=== PATIENT | male | born 2000 | race Caucasian/White ===

== ENCOUNTER 2025-11-17 07:29 | Emergency (ER) | payer OTHER ==
[~2025-11-17] VITALS: Ht 160 cm; Wt 54.0 kg
--- NOTE | 2025-11-17 08:10 | Physician Documentation ---
History of Present Illness ~ General Chief Complaint: Rash Stated Complaint: STOMACH RASH Time Seen by MD: 08:09 Source: patient Mode of Arrival: POV History of Present Illness Initial Comments CC: Rash HPI: Patient is a 25-year-old male with current skin diagnosis of malassezia folliculitis (pityrosporum) presenting to the ED for evaluation of rash flare- up. The patient reports that the rash started from a fungal infection and that he has been following up with a sales analytics manager to manage his condition. He locates the rash to be on his bilateral lower extremities with spreading to his a buttocks. The rash has been increasingly itchy and painful. Patient was prescribed a topical cream for the itchiness, but he did not have any relief with use. Patient was also prescribed itraconazole 100 mg topical cream but was not able to pick it up due to insurance complications. The patient is requesting for a single dose here. He denies any chills or fevers. ROS: Constitutional: Negative for fever and chills. HENT: Negative for sore throat and rhinorrhea. Eyes: Negative for pain and redness. Respiratory: Negative for cough and SOB. Cardiovascular: Negative for chest pain and palpitations. Gastrointestinal: Negative for nausea and vomiting. . Genitourinary: Negative for dysuria and hematuria. Musculoskeletal: Negative for acute back pain and acute neck pain. Skin: Rash to lower extremities and buttocks Neurological: Negative for acute numbness or weakness. PMH: Cerebral palsy Medication Reconciliation Allergies: Coded Allergies: No Known Allergies (Unverified , 11/17/25) Scheduled Fluconazole (Diflucan), 1 TAB PO DAILY Hydroxyzine Hcl (Atarax), 1 TAB PO Q8H Past Medical History Other Past Medical History: Cerebral palsy Physical Exam Physical Exam Vital Signs: Temperature: 97.4, Source: Temporal, Heart Rate: 108, Respiratory Rate: 15, BP: 133/91, Pulse Oximetry: 96, Weight: 54.000 Physical Exam General: Awake. No distress. Verbal Head: No trauma Eyes: Nl lids Nl conjunctiva. No eye discharge ENT: Mucous membranes Nl. Lips Nl. No lesions Neck: Supple. No JVD. No visible mass Resp: Rate normal. No respiratory distress. No retractions. Normal air flow. No wheezes, rhonchi, or rales. Heart: Regular rhythm. No murmur. No rub Abdomen: Soft. Nontender. No guarding. No rebound : Genitals normal Musc/skeletal: No calf or popliteal tenderness. No edema Skin: The patient has numerous small papules on left leg that is 1 mm in size. No petechiae. Not diaphoretic. No vesicles, bullae, petechiae, or purpura. No conjunctival or oral lesions. area normal-appearing Neuro: Alert, oriented. Normal speech the patient has a history of cerebral palsy. No acute symptoms alert oriented normal speech Progress Results/Orders Results/Orders Completed Orders - AMIRA CHASE MD Liver Panel (11/17/25 08:57) Bmp Er (11/17/25 08:57) Fluconazole Tablet (Diflucan Tablet) (11/17/25 09:00) Hydroxyzine Tablet (Atarax Tablet) (11/17/25 09:00) Medications Received in ER Medications (Trade) Dose Ordered Sig/Em Route PRN Reason Start Time Stop Time Status Last Admin Dose Admin (Diflucan tablet) 200 mg ONCE ONCE PO 11/17/25 09:00 11/17/25 09:01 DC 11/17/25 09:09 200 MG (Atarax tablet) 25 mg ONCE ONCE PO 11/17/25 09:00 11/17/25 09:01 DC 11/17/25 09:09 25 MG Vital Signs 11/17/25 11/17/25 07:36 10:16 Temp 97.4 98.4 Pulse 108 78 Resp 15 14 B/P (MAP) 133/91 116/86 Pulse Ox 96 98 Laboratory Tests Test 11/17/25 09:19 Sodium Level 141 Potassium Level 4.1 Chloride Level 106 Carbon Dioxide Level 28.9 Anion Gap 6 L Blood Urea Nitrogen 19 H Creatinine 0.79 Estimated GFR/1.73 m2 > 90 BUN/Creatinine Ratio 24.1 H Glucose Level 94 Calcium Level 9.2 Total Bilirubin 0.4 Direct Bilirubin 0.1 Aspartate Amino Transf (AST/SGOT) 15 Alanine Aminotransferase (ALT/SGPT) 24 Alkaline Phosphatase 68 Total Protein 7.7 Albumin 4.6 Globulin 3.1 Albumin/Globulin Ratio 1.5 Chemistry Comments Medical Decision Making Additional information obtaine: N/A Findings Patient is a 25-year-old male with current skin diagnosis of malassezia folliculitis (pityrosporum) presenting to the ED for evaluation of rash flare- up. The patient reports that the rash started from a fungal infection and that he has been following up with a sales analytics manager to manage his condition. He locates the rash to be on his bilateral lower extremities with spreading to his a buttocks. The rash has been increasingly itchy and painful. Patient was prescribed a topical cream for the itchiness, but he did not have any relief with use. Patient was also prescribed itraconazole 100 mg topical cream but was not able to pick it up due to insurance complications. The patient is requesting for a single dose here. He denies any chills or fevers. MDM: Limited: (2 points from category 1 or one discussion with independent historian). Moderate: one of the following (3 points from category 1, or independent interpretations of tests performed by another physician/QHP: (ct,ecg,rad tadeo,rhythm strip,or comparing xray to prior), or discussion of tests or management with other professionals (not including [facility] ER doc/PA or family members.) High: (2 of 3 from : category 1 (3 points), independent interpretation of tests performed by another physician/QHP, and discussion of tests or management). Prior ER notes reviewed: Category 1: Number of Tests ordered or reviewed: [] Number of Independent Historians: [] Non [facility] ER notes reviewed: 1. Dermatology report 2. 3. Category 2: I independently interpreted the: [] Category 3: Discussion with other professionals: [] SOC[employer]MIN[employer]S OF HEALTH Problems related to: ( )Challenges with access to Primary Care or Outpatient Speciality Care ( )Psychosocial circumstances such as mental health issues ( )Social environment: such as violence or substance abuse ( )Housing and economic circumstances: such as homelessness ( )Employment and unemployment: such as recently loss of employment ( )Occupational exposures or injuries: ( )Accessing ED outside of normal PCP hours ( )Language barrier: ( )Primary support group, including family circumstances: Prescription Management: Rx strength meds given in ED: [] New Prescriptions: [] ( )I have reviewed the patient's medications and I do not recommend any changes at this time. (Applies only if checked) Comorbid conditions include but are not limited to: [] Testing or interventions considered: [] Differential includes but is not limited to: [] Differential Diagnosis See MDM Departure Disposition: 01 HOME / SELF CARE / HOMELESS Impression: Primary Impression: Fungal skin infection Additional Impression: Urticaria Condition: Stable Discharge Instructions: Pruritus Additional Instructions: Take Diflucan daily. Diflucan can have side effects including liver damage. It is unlikely with a short course but he will need follow up with the your sales analytics manager. Call your sales analytics manager on Friday to determine whether or not to continue the Diflucan or switch it to another antifungal medicine that may be covered by your insurance since you can not get the itraconazole that they prescribed. Return here for any worsening symptoms or concerns. Take Atarax as needed for itching. It may have the side effect of making you sleepy. Referrals: NO PRIMARY CARE PROVIDER (PCP) Prescriptions Hydroxyzine Hcl (Atarax) 25 Mg Tablet 1 TAB PO Q8H for itching for 30 Days, #30 TAB 0 Refills Prov: AMIRA CHASE MD 11/17/25 Fluconazole (Diflucan) 200 Mg Tablet 1 TAB PO DAILY for 7 Days, #7 TAB Prov: AMIRA CHASE MD 11/17/25 Education Educated: Patient Educated regarding: diagnosis, treatment Signature Scribe Signature: Scribed for Amira Chase MD by Markell Gamboa . 11/17/25 09:20 Attestation: Scribed for Amira Chase MD by Amira Chase. 11/17/2025 0920 AMIRA CHASE MD Nov 17, 2025 08:10 MARKELL WU Nov 17, 2025 09:23
[2025-11-17 09:57] LABS: CREATININE 0.79 MG/DL (0.60-1.10); TOTAL CARBON DIOXIDE 28.9 MMOL/L (24-32); eCRCL 107 ML/MIN; eGFR > 90 ML/MIN
[2025-11-17] MEDS ORDERED: FLUC200T2 PO (10:12)
[2025-11-17] MEDS ORDERED: HYDR-3686 PO (10:15)
[2025-11-17 10:16] VITALS: BP 116/86; PULSE 78; RESP 14; TEMP 98.4; O2SAT 98
== END 2025-11-17 10:20 | disposition home or self-care (01) ==
LOC: ER 07:31
DX: B36.9 Superficial mycosis, unspecified (principal); L50.9 Urticaria, unspecified
CPT/HCPCS: 36415; 80048; 80076; 99283; Q0177